=== PATIENT | male | born 1995 | race Caucasian/White ===

== ENCOUNTER 2016-05-20 20:37 | Emergency (ER) | payer MEDICARE ==
[~2016-05-20] VITALS: Ht 188 cm; Wt 67.5 kg
[~2016-05-20 20:37] MED LIST: CAPITAL WITH C473 ML PO; [UNRECOGNIZED DRUG - REMARK]
[2016-05-21 00:49] LABS: HEMATOCRIT 42.9 % (38.0-50.0); MCH 30.4 PG (29.0-34.0); MEAN PLAT.VOLUME 9.8 uM^3 (9.0-12.4); PLATELET COUNT 191 K/uL (156-360); RBC DIS.WIDTH-CV 12.5 % (11.8-14.6); RBC DIS.WIDTH-SD 39.2 % (39-53); RED BLOOD COUNT 4.93 M/uL (4.00-5.50); WHITE BLOOD COUNT 8.1 K/uL (4.1-10.2)
[2016-05-21 00:58] LABS: CHLORIDE 105 mEq/L (99-109); POTASSIUM 3.5 mEq/L (3.7-5.4); SODIUM 141 mEq/L (136-147)
[2016-05-21 01:00] LABS: GLUCOSE 98 mg/dL (70-99)
[2016-05-21 01:01] LABS: ANION GAP 11 MEQ/L (2-14)
[2016-05-21 01:03] LABS: SERUM ETHYL ALCOHOL < 10 mg/dL
[2016-05-21 01:04] LABS: GFR ESTIMATE (CALCULATED) > 59 mL/min/
[2016-05-21 01:06] LABS: UREA NITROGEN (BUN) 18 mg/dL (9-23)
[2016-05-21 01:07] LABS: SALICYLATE < 5.0 MG/DL (15-30)
[2016-05-21] MEDS ORDERED: CATAPRES0.1 MG PO (02:00)
[2016-05-21] MEDS ORDERED: ATARAX,VISTARIL25 MG PO (02:00)
[2016-05-21 02:42] VITALS: BP 120/70
== END 2016-05-21 02:42 | disposition home or self-care (01) ==
LOC: EME 20:37
PROVIDERS: Physician Assistant
DX: F11.20 Opioid dependence, uncomplicated (principal); F41.8 Other specified anxiety disorders; F33.8 Other recurrent depressive disorders; F17.200 Nicotine dependence, unspecified, uncomplicated
CPT/HCPCS: 80048; 85027; 90839; 93005; 99281; 99283; G0480; Q0177